=== PATIENT | female | born 2000 | race Caucasian/White ===

== ENCOUNTER 2020-07-09 22:57 | Emergency (ER) | payer SELFPAY ==
[~2020-07-09] VITALS: Ht 167.6 cm; Wt 81.8 kg
[2020-07-10] MEDS ORDERED: MetroNIDAZOLE 250 MG TABLET PO ONE
[2020-07-10 00:18] VITALS: BP 118/71
== END 2020-07-10 00:18 | disposition home or self-care (01) ==
LOC: EMS 22:57
DX: N76.0 Acute vaginitis (principal); F12.90 Cannabis use, unspecified, uncomplicated
CPT/HCPCS: 99283

== ENCOUNTER 2020-07-13 22:21 | Emergency (ER) | payer SELFPAY ==
[~2020-07-13] VITALS: Ht 170.2 cm; Wt 81.8 kg
[2020-07-13 22:38] VITALS: BP 110/73
== END 2020-07-14 | disposition left against medical advice (07) ==
LOC: EMS 22:21
DX: R11.0 Nausea (principal); Z53.21 Procedure and treatment not carried out due to patient leaving prior to being seen by health care provider